=== PATIENT | male | born 1965 ===

== ENCOUNTER 2019-06-13 00:36 | Inpatient (IN) | payer BC ==
[~2019-06-13] VITALS: Ht 185.4 cm; Wt 126.5 kg
[2019-06-13 01:15] LABS: BASOPHILS 0.6 % (0-2); EOSINOPHILS 1.7 % (0-7); HEMATOCRIT 46.5 % (42.0-54.0); IMMATURE GRANULOCYTES 0.2 % (0-5); LYMPHOCYTES 27.9 % (15-50); MCH 30.6 pg (26.0-34.0); MCHC 34.4 g/dL (31.0-37.0); MCV 88.9 fL (80.0-100.0); MEAN PLATELET VOLUME 11.9 fL (7.4-10.4); NEUTROPHILS 59.6 % (40-80); PLATELET COUNT 156 10x3/uL (130-400); RBC 5.23 10x6/uL (4.20-6.10); RDW 12.7 % (11.5-14.5); WBC 8.3 10x3/uL (4.8-10.8)
[2019-06-13 01:25] LABS: APTT 28.6 SECONDS (22.8-39.4); INR 1.01 (0.85-1.17); PROTIME 12.8 SECONDS (11.6-15.0)
[2019-06-13 01:28] LABS: ALBUMIN 3.3 g/dL (3.4-5.0); ALKALINE PHOSPHATASE 79 U/L (46-116); ALT (SGPT) 52 U/L (10-68); BILIRUBIN - TOTAL 0.53 mg/dL (0.2-1.3); CALC OSMOLALITY 282 mosm/kg (275-300); CALCIUM 8.3 mg/dL (8.5-10.1); CARBON DIOXIDE 28.3 mmol/L (21.0-32.0); CHLORIDE - SERUM 103 mmol/L (98-107); CREATININE - SERUM 1.2 mg/dL (0.6-1.3); GLUCOSE 243 mg/dL (74-106); POTASSIUM - SERUM 3.9 mmol/L (3.5-5.1); PROTEIN - SERUM 6.9 g/dL (6.4-8.2); SODIUM 137 mmol/L (136-145); UREA NITROGEN 14 mg/dL (7-18); eGFR NON AFRICAN AMERICAN 67 mL/min (90-120)
[2019-06-13 01:41] LABS: CKMB 1.7 U/L (0.0-3.6); CREATINE KINASE 276 UL (21-232); PRO BNP 804 pg/mL (0-125); TROPONIN-I 0.041 ng/mL (0.000-0.060)
--- NOTE | 2019-06-13 03:18 | NUR ---
HAND-OFF REPORT GIVEN TO HOLGER REDDY.
--- NOTE | 2019-06-13 03:55 | NUR ---
FSBS 213
--- NOTE | 2019-06-13 03:57 | NUR ---
ZITHROMAX INFUSING AT TIME OF ADMISSION
[2019-06-13 04:17] VITALS: BP 144/111; Ht 185.4 cm; Wt 126.5 kg
--- NOTE | 2019-06-13 04:20 | NUR ---
PT TO FLOOR VIA BED. PT A/O X 4. UP WITHOUT ASSISTANCE. PT DENIES PAIN AT TIME OF ARRIVAL. IV TO L HAND, PATENT, DRSG C/D/I, ZITHROMAX INFUSING ON ARRIVAL. 02 VIA NC AT 2L, BREATHING EVEN AND UNLABORED. NO EDEMA NOTED. 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 NO FAMILY AT BEDSIDE. TELE APPLIED, 101 SINUS TACH. NO FURTHER CONCERNS AT THIS TIME. BED LOWERED AND LOCKED. CL IN REACH. WILL CTM.
--- NOTE | 2019-06-13 04:31 | NUR ---
I have reviewed this patient and I concur with the Shift Assessment completed by the Licensed Practical Nurse today this shift.
[2019-06-13 08:10] VITALS: BP 152/94
--- NOTE | 2019-06-13 08:34 | NUR ---
PATIENT IS A RECENT ADMIT FROM ER THIS MORNING AROUND 4. HE IS A NEW DIAGNOSIS DIABETES. HE IS ALERT AND ORIENTED, AND SITTING UP IN BED EATTING BREAKFAST. DENIES ANY NEEDS AT THIS TIME.
[2019-06-13 12:15] VITALS: BP 143/86
[2019-06-13 15:24] VITALS: BP 107/59
--- NOTE | 2019-06-13 17:00 | NUR ---
REPORTED [address] RICHARD. HE GAVE ORDERS AND ACKNOWLEDGED THE BLOODSUGAR. FOLLOWING ORDERS TO TREAT AND RECHECK IN ONE HOUR.
--- NOTE | 2019-06-13 18:40 | NUR ---
CALLED DR RICHARD REGARDING BLOOD SUGAR OF 433. HE SAID GIVE 20 MORE UNITS, AND DONT CHECK IT AGAIN UNTIL HIS NEXT SCHEDULED BLOOD SUGAR CHECK.
--- NOTE | 2019-06-13 20:11 | NUR ---
RECEIVED REPORT, WILL ASSUME CARE OF PT, PT SITTING IN CHAIR, DENIES ANY NEEDS AT THIS TIME, CALL LIGHT IN REACH, WILL CONTINUE PLAN OF CARE
[2019-06-13 20:27] VITALS: BP 129/88
[2019-06-14] VITALS: BP 132/78
[2019-06-14 04:00] VITALS: BP 115/69
[2019-06-14 04:43] LABS: BASOPHILS 0 % (0-2); EOSINOPHILS 0 % (0-7); HEMATOCRIT 41.8 % (42.0-54.0); HEMOGLOBIN 14.2 g/dL (13.5-17.5); IMMATURE GRANULOCYTES 0.3 % (0-5); LYMPHOCYTES 4.1 % (15-50); MCH 30.5 pg (26.0-34.0); MCV 89.9 fL (80.0-100.0); MEAN PLATELET VOLUME 12.1 fL (7.4-10.4); MONOCYTES 3.3 % (2-11); NEUTROPHILS 92.3 % (40-80); PLATELET COUNT 143 10x3/uL (130-400); RBC 4.65 10x6/uL (4.20-6.10); RDW 13.3 % (11.5-14.5)
[2019-06-14 04:45] LABS: WBC 17.7 10x3/uL (4.8-10.8)
--- NOTE | 2019-06-14 04:52 | NUR ---
I have reviewed this patient and I concur with the Shift Assessment completed by the Licensed Practical Nurse today this shift.
[2019-06-14 04:57] LABS: ANION GAP 12.4 mmol/L (8-16); POTASSIUM - SERUM 4.4 mmol/L (3.5-5.1)
[2019-06-14 04:58] LABS: CREATININE - SERUM 1.8 mg/dL (0.6-1.3)
[2019-06-14 08:09] VITALS: BP 120/65
[2019-06-14 11:56] VITALS: BP 129/62
--- NOTE | 2019-06-14 12:54 | HP ---
PATIENT: RAOUL HE MEDICAL RECORD: [id number] ACCOUNT: [id number] LOCATION:[address] : 65 ADMISSION DATE: 06/13/19 PCP: JAREN RICHARD MD HISTORY AND PHYSICAL EXAMINATION DATE OF ADMISSION: 06/13/2019 CHIEF COMPLAINT: Shortness of breath. 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 He has been having increased shortness of breath over the last few days. He was in [place], [place] and just could not catch his breath. It was worse taking a deep breath. He denied any fever or chills, but is breathing hard. He made it back home and he came into the ER. His blood sugar was 243. Chest x-ray suggested bilateral pneumonia. The rest of his labs pretty stable. He is admitted. PAST MEDICAL AND SURGICAL HISTORY: Hypertension. He had a cardiac evaluation in 2014 and it was okay. 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 CURRENT MEDICATIONS: None, but he usually takes lisinopril 20 or 40 twice a day. DRUG ALLERGIES: None. HABITS: Former smoker. No alcohol or drugs. SOCIAL HISTORY: Single, [id number] electric truck driver. FAMILY HISTORY: Father in his 80s of intestinal cancer. He had also had hypertension. His mother at 79 of lung cancer and some sort of leukemia. There is a family history on mother's side of diabetes. REVIEW OF SYSTEMS: GENERAL: He states he has just had increased fatigue over the last 3-4 weeks. HEENT: No particular sinus or allergy problems. RESPIRATORY: He states he may have had some sort of reactive airway disease as a child, but there is no definite diagnosis of asthma. CARDIAC: No known diagnosis of coronary disease. GASTROINTESTINAL: No diarrhea, constipation, or heartburn. GENITOURINARY: No significant problems there. MUSCULOSKELETAL: No significant problems there. PSYCHIATRIC: Denies depression or melancholia. PHYSICAL EXAMINATION: VITAL SIGNS: Temperature 98.1, pulse 94, respirations 20, blood pressure 152/94, O2 sats 95%. GENERAL: He is awake and alert. He does not appear in distress at this time. SKIN: Warm and dry. HEENT: Grossly within normal limits. NECK: Supple. HEART: Regular rate and rhythm. HISTORY AND PHYSICAL [id number] RAOUL HE LUNGS: Decreased breath sounds in the bases bilaterally. ABDOMEN: Soft. EXTREMITIES: No edema. NEUROLOGIC: Intact. LABORATORY DATA: CBC with a white count of 8300, hemoglobin 16, hematocrit 46. Basic metabolic panel is all okay except glucose 243. Troponin is 0.041. ProBNP 804. INR 1.01. Chest x-ray suggests bilateral infiltrates in the bases. ASSESSMENT: 1. Acute bacterial pneumonia. 2. Hyperglycemia with no diagnosis of diabetes. PLAN: He will be admitted. Started on steroids and updrafts, IV antibiotics. Repeat chest x-ray. We will check a hemoglobin A1c, other tests or procedures as warranted. TRANSINT:[id number] Voice Confirmation ID: [id number] DOCUMENT ID: [id number] JAREN RICHARD MD at 1254 CC: [id number] DICTATION DATE: 06/13/19 1210 TOUR BUS DRIVER/GUIDE: 06/13/19 1303 ADM IN [place] [id number] [place] [address]
[2019-06-14 16:14] VITALS: BP 124/55
--- NOTE | 2019-06-14 17:34 | NUR ---
ALERT AND ORIENTED X4. SITTING UP IN BED. DENIES SOB OR PAIN. SINUS TACH 115 ON TELEMETRY. DENIES ANY NEEDS AT THIS TIME. CONTINUE PLAN OF CARE AND SAFETY PRECAUTIONS.
--- NOTE | 2019-06-14 19:33 | NUR ---
RECEIVED REPORT, WILL ASSUME CARE OF PT, DENIES ANY NEEDS AT THIS TIME, BED IS LOW, SRX2, CALL LIGHT IN REACH, WILL CONTINUE PLAN OF CARE
[2019-06-14 20:00] VITALS: BP 128/71
[2019-06-15 00:18] VITALS: BP 120/65
[2019-06-15 04:00] VITALS: BP 136/85; BP 142/66
--- NOTE | 2019-06-15 04:38 | NUR ---
I have reviewed this patient and I concur with the Shift Assessment completed by the Licensed Practical Nurse today this shift.
[2019-06-15 04:55] LABS: BASOPHILS 0 % (0-2); EOSINOPHILS 0 % (0-7); HEMATOCRIT 40.7 % (42.0-54.0); HEMOGLOBIN 13.7 g/dL (13.5-17.5); IMMATURE GRANULOCYTES 0.4 % (0-5); LYMPHOCYTES 3.5 % (15-50); MCH 30.4 pg (26.0-34.0); MCHC 33.7 g/dL (31.0-37.0); MCV 90.4 fL (80.0-100.0); MEAN PLATELET VOLUME 12.6 fL (7.4-10.4); NEUTROPHILS 92.1 % (40-80); PLATELET COUNT 144 10x3/uL (130-400); RDW 13.7 % (11.5-14.5); WBC 17.4 10x3/uL (4.8-10.8)
[2019-06-15 05:06] LABS: ANION GAP 14.7 mmol/L (8-16); CALCIUM 8.8 mg/dL (8.5-10.1); CARBON DIOXIDE 24.8 mmol/L (21.0-32.0); CREATININE - SERUM 1.7 mg/dL (0.6-1.3); POTASSIUM - SERUM 4.5 mmol/L (3.5-5.1)
--- NOTE | 2019-06-15 07:47 | NUR ---
REPORT RECEIVED. WILL CONTINUE WITH POC. PT CURRENTLY LYING SEMI FOWLERS. CALL LIGHT W/I REACH. PT IS AAO AND UP AD ABHILASH. RR EVEN AND UNLABORED ON RA. L.HAND PIV IS SALINE LOCKED. PT ANTICIPATING DISCHARGE TODAY. PT DENIES ANY NEEDS. NO S/S OF DISTRESS NOTED. WILL CTM.
[2019-06-15 08:03] VITALS: BP 123/72
[2019-06-15] MEDS ORDERED: LISINOPRIL10 MG PO (08:47)
[2019-06-15] MEDS ORDERED: LEVAQUIN750 MG PO (08:48)
[2019-06-15] MEDS ORDERED: PIOGLITAZONE15 MG PO (08:48)
[2019-06-15] MEDS ORDERED: ALBUTEROL SULF8.5 GM INH (08:49)
[2019-06-15 11:41] VITALS: BP 131/72
--- NOTE | 2019-06-15 11:49 | NUR ---
PT IS TO HAVE DIABETIC DIET TEACHING PRIOR TO DISCHARGE. ANTONY LAYTON BIZTALK DEVELOPER CALLED AND INFORMED,
--- NOTE | 2019-06-15 12:37 | NUR ---
Nutrition education for DMT2: Pt discharging on Pioglitazone Instructed pt on DM diet. Reviewed CHO foods and the affect CHO have on glucose. REviewed portion sizes of common CHO foods. Advised pt to eliminate all juice, sugary drinks from diet. Reviewed pts diet recall and made suggestions for decreasing CHO in diet. Reviewed healthy fats to eat to replace CHO. Stressed the importance of eating meals, snacks about the same time every day. Discussed the importance of daily physical activity. Answered all questions. Provided pt with printed diet information. Pt appears motivated to make changes to improve glucose. Thank you for the consult.
--- NOTE | 2019-06-15 12:48 | MORECARE ---
CASE MANAGEMENT DISCHARGE SUMMARY PATIENT: RAOUL HE UNIT: [id number] ADM DATE: 06/13/19 AGE: 53 : 65 SEX: M ROOM/BED: D.2105 AUTHOR: EVERTDOC PHYSICIAN: REFERRING PHYSICIAN: JAREN RICHARD MD DATE OF SERVICE: 06/15/19 Discharge Plan Patient Name: RAOUL HE Facility: [facility]:[place] : 1965 Planned Disposition: Home Anticipated Discharge Date: 06/15/19 Discharge Date: Expected LOS: 2 Initial Reviewer: [email or web address] Initial Review Date: 06/15/2019 Generated: 06/15/19 1:47 pm Comments DCP- Discharge Planning Updated by [id number]: Tyson Lin on 06/15/19 11:[address] Patient Name: RAOUL HE Admission Status: ER Accout number: [id number] Admission Date: 06-13-2019 : 1965 Admission Diagnosis: Attending: JAREN RICHARD Current LOS: 2 Anticipated DC Date: 06-15-2019 Planned Disposition: Home Primary Insurance: [employer] O Discharge Planning Comments: CM MET WITH PT IN ROOM TO DISCUSS DISCHARGE PLANNING AND NEEDS. PT REPORTS LIVING AT HOME INDEPENDENTLY AND ALONE. PT HAS NO MEDICAL EQUIPMENT AND NO OUTSIDE SERVICES ASSISTING IN THE HOME. CM DISCUSSED AVAILABILITY OF HOME HEALTH, REHAB SERVICES AND MEDICAL EQUIPMENT. PT DENIES DISCHARGE NEEDS, REPORTS HE IS DRIVING HIMSELF HOME AT DISCHARGE. Tetryl Dissolver Operator: Tyson Lin DCPIA - Discharge Planning Initial Assessment Updated by [email or web address]: Tyson Lin on 06/15/19 12:39 pm * Is the patient Alert and Oriented? Yes * How many steps to enter\exit or inside your home? NONE * PCP DR. RICHARD * Pharmacy [facility] IN [place] * Preadmission Environment Home Alone * ADLs Independent * Equipment None * Other Equipment NO MEDICAL EQUIPMENT PROVIDER PREFERENCE * List name and contact numbers for known caregivers / representatives who currently or will assist patient after discharge: NONE * Verbal permission to speak to the caregivers and representatives has been obtained from the patient. N/A * Community resources currently utilized None * Please name any agencies selected above. NONE * Additional services required to return to the preadmission environment? No * Can the patient safely return to the preadmission environment? Yes * Has this patient been hospitalized within the prior 30 days at any hospital? No Patient Name: RAOUL HE Page [id number] at 1248 All edits/amendments must be made on the electronic document DICTATION DATE: 06/15/191246 ARCHITECTURAL DRAFTSPERSON: ANEL 06/15/191246 RPT#: [id number] DC DATE: STATUS: ADM IN [facility] [address] [place] [address] END OF REPORT
--- NOTE | 2019-06-15 13:14 | NUR ---
PT DISCHARGED HOME VIA WHEELCHAIR WITH FAMILY. PT SIGNED PROPER DISCHARGE INSTRUCTION AND REMOVED ALL VALUABLES FROM THE ROOM. PIV REMOVED WITH CATHETER TIP FULLY INTACT. TELEMETRY REMOVED AND RETURNED.
== END 2019-06-15 13:21 | disposition home or self-care (01) | DRG 195 ==
LOC: D.ER 00:36 → D.M2 03:04
PROVIDERS: Family Medicine; ADMIT Family Medicine; ATTEND Family Medicine
DX: J18.1 Lobar pneumonia, unspecified organism (principal); R53.81 Other malaise; E11.65 Type 2 diabetes mellitus with hyperglycemia